=== PATIENT | female | born 1980 | race American Indian/Alaskan Native ===

== ENCOUNTER 2017-03-16 21:20 | Inpatient (IN) | payer MEDICAID ==
[2017-03-16] MEDS: LACTATED RINGERS 1,000 ML IV SCH (22:29)
[2017-03-16 22:51] LABS: Hematocrit 33.9 % (30.3-42.9); Hemoglobin 11.4 gm/dl (10.1-14.3); Mean Corpuscular HGB Conc 34 % (30-34); Mean Corpuscular Hemoglobin 29 pg (28-32); Mean Corpuscular Volume 87 fl (79-97); Platelet Count 182 K/mm3 (140-440); Red Blood Count 3.89 M/mm3 (3.65-5.03); Red Cell Distribution Width 16.5 % (13.2-15.2); White Blood Count 8.8 K/mm3 (4.5-11.0)
[2017-03-16] MEDS ORDERED: ePHEDrine SULFATE ONE (23:13)
[2017-03-16] MEDS ORDERED: LACTATED RINGERS 1,000 ML ONE (23:13)
--- NOTE | 2017-03-16 23:30 | History and Physical Report ---
History of Present Illness Date of examination: 03/16/17 Date of admission: 03/16/17 22:05 Chief complaint: Rupture of membranes History of present illness: Patient is 36 year old , LMP 06/13/16, EDC 03/20/17 at 39 weeks and 3 days gestation who presented to the labor floor complaining of rupture of membranes with clear fluid at about 8 PM. She also complains of contractions. She reports good movement. Past History Social history: no significant social history - Obstetrical History : 6 Para: 4 Hx # Term Pregnancies: 1 Number of Pregnancies: 3 Spontaneous Abortions: 1 Number of Living Children: 4 Medications and Allergies Allergies Allergy/AdvReac Type Severity Reaction Status Date / Time No Known Allergies Allergy Unverified 03/16/17 21:42 Active Meds: Active Medications Influenza Virus Vaccine Quadrival (Fluarix Quad 5324-6091(36 Mos+) 0.5 ml IM .ONCE ONE Stop: 03/16/17 23:15 - Vital Signs Vital signs: Vital Signs Temp Resp 98.0 F 18 03/16/17 21:44 03/16/17 21:44 Temp Pulse Resp BP Pulse Ox 98.0 F 94 H 18 125/66 03/16/17 21:44 03/16/17 23:27 03/16/17 21:44 03/16/17 23:27 - Physical Exam Cardiovascular: Normal S1, Normal S2 Lungs: Positive: Clear to auscultation Vulva: both: normal Adnexa: both: normal Deep Tendon Reflex Grade: Normal +2 - Obstetrical FHR: category 1 Uterine Contraction Monitor Mode: External Cervical Dilatation: 4 Cervical Effacement Percentage: 50 station: -2 Uterine Contraction Pattern: Irregular Results Result Diagrams: 03/16/17 22:15 Abnormal lab results 03/16/17 Range/Units 22:15 RDW 16.5 H (13.2-15.2) % All other labs normal. Assessment and Plan - Patient Problems (1) 39 weeks gestation of Current Visit: Yes Status: Acute (2) Active labor Current Visit: Yes Status: Acute Plan to address problem: Admit to Floor. Routine admitting labs. and toco monitoring. IV fluid Anticipate (3) Anemia Current Visit: Yes Status: Acute Qualifiers: Anemia type: iron deficiency
[2017-03-16] MEDS ORDERED: NARCAN 2 MG/2 ML IV PRN (23:39)
[2017-03-16] MEDS ORDERED: ePHEDrine SULFATE IV PRN (23:39)
--- NOTE | 2017-03-16 23:39 | Anesthesia Consultation ---
Anesthesia Consult and Med Hx Date of service: 03/16/17 - Airway Anesthetic Teeth Evaluation: Good ROM Head & Neck: Adequate Mental/Hyoid Distance: Adequate Mallampati Class: Class II Intubation Access Assessment: Probably Good - Pulmonary Exam CTA: Yes - Cardiac Exam Cardiac Exam: RRR - Pre-Operative Health Status ASA Pre-Surgery Classification: ASA2 Proposed Anesthetic Plan: Epidural, Spinal - Pulmonary Hx Asthma: Yes (childhood) COPD: No Hx Pneumonia: No - Cardiovascular System Hx Hypertension: No - Central Nervous System Hx Seizures: No Hx Psychiatric Problems: No - Endocrine Hx Renal Disease: No Hx End Stage Renal Disease: No Hx Hypothyroidism: No Hx Hyperthyroidism: No - Hematic Hx Anemia: Yes Hx Sickle Cell Disease: No - Other Systems Hx Alcohol Use: No Hx Obesity: Yes - Additional Comments Anesthesia Medical History Comments: IUP
[2017-03-16] MEDS ORDERED: fentaNYL-BUPIV 2 MCG/ML-0.125% 200 MCG/100 ML BAG EPIDURAL SCH (23:45)
[2017-03-17] MEDS: LACTATED RINGERS 1,000 ML IV SCH ×2 (00:25→03:35)
--- NOTE | 2017-03-17 06:34 | Progress Note ---
Assessment and Plan - Patient Problems (1) 39 weeks gestation of Current Visit: Yes Status: Acute (2) Active labor Current Visit: Yes Status: Acute Plan to address problem: Continue and toco monitoring. Anticipate . (3) Anemia Current Visit: Yes Status: Acute Qualifiers: Anemia type: iron deficiency (4) Fever Current Visit: Yes Status: Acute Plan to address problem: Tylenol given. Subjective - Subjective Date of service: 03/17/17 Principal diagnosis: Active labor Interval history: Patient is a 36 year old , LMP 06/13/16, EDC 03/20/17 at 39 weeks and 4 days gestation who presented to the labor floor complaining of rupture of membranes with clear fluid at about 8 PM. She was admitted for labor. She had an epidural. Her contractions have been every 3-4 minutes. tracing CAT1. Exam: cervix FD with anterior lip, head direct OP. Temp 99F. Tylenol given. Objective - Vital Signs Vital Signs: Vital Signs - 12hr 03/16/17 03/16/17 03/16/17 21:44 23:27 23:29 Temperature 98.0 F Pulse Rate 94 H 114 H Respiratory 18 Rate Blood Pressure 125/66 124/73 O2 Sat by Pulse 98 Oximetry 03/16/17 03/16/17 03/16/17 23:31 23:33 23:34 Temperature Pulse Rate 100 H 105 H 103 H Respiratory Rate Blood Pressure 123/72 127/71 O2 Sat by Pulse 99 Oximetry 03/16/17 03/16/17 03/16/17 23:35 23:38 23:39 Temperature Pulse Rate 104 H 93 H 108 H Respiratory Rate Blood Pressure 147/77 135/58 117/60 O2 Sat by Pulse 100 Oximetry 03/16/17 03/16/17 03/16/17 23:41 23:43 23:44 Temperature Pulse Rate 102 H 92 H 113 H Respiratory Rate Blood Pressure 119/56 113/59 O2 Sat by Pulse 100 Oximetry 03/16/17 03/16/17 03/16/17 23:45 23:47 23:49 Temperature Pulse Rate 107 H 114 H 107 H Respiratory Rate Blood Pressure 114/56 100/50 115/58 O2 Sat by Pulse 100 Oximetry 03/16/17 03/16/17 03/16/17 23:51 23:53 23:54 Temperature Pulse Rate 109 H 109 H 110 H Respiratory Rate Blood Pressure 111/57 121/60 O2 Sat by Pulse 100 Oximetry 03/16/17 03/16/17 03/16/17 23:55 23:57 23:59 Temperature Pulse Rate 97 H 117 H 112 H Respiratory Rate Blood Pressure 121/58 111/65 110/55 O2 Sat by Pulse 100 Oximetry 03/17/17 03/17/17 03/17/17 00:01 00:03 00:04 Temperature Pulse Rate 104 H 109 H 119 H Respiratory Rate Blood Pressure 115/58 115/58 O2 Sat by Pulse 100 Oximetry 03/17/17 03/17/17 03/17/17 00:05 00:07 00:09 Temperature Pulse Rate 108 H 114 H 118 H Respiratory Rate Blood Pressure 116/64 114/58 115/56 O2 Sat by Pulse 100 Oximetry 03/17/17 03/17/17 03/17/17 00:14 00:19 00:21 Temperature Pulse Rate 103 H 96 H 107 H Respiratory Rate Blood Pressure 101/56 O2 Sat by Pulse 100 100 Oximetry 03/17/17 03/17/17 03/17/17 00:24 00:29 00:32 Temperature Pulse Rate 103 H 99 H 107 H Respiratory Rate Blood Pressure 107/58 O2 Sat by Pulse 100 100 Oximetry 03/17/17 03/17/17 03/17/17 00:34 00:39 00:41 Temperature Pulse Rate 104 H 92 H 91 H Respiratory Rate Blood Pressure 117/57 O2 Sat by Pulse 100 100 Oximetry 03/17/17 03/17/17 03/17/17 00:44 00:49 00:51 Temperature Pulse Rate 94 H 89 90 Respiratory Rate Blood Pressure 112/59 O2 Sat by Pulse 100 100 Oximetry 03/17/17 03/17/17 03/17/17 00:54 00:59 01:00 Temperature Pulse Rate 95 H 93 H 96 H Respiratory Rate Blood Pressure 118/58 O2 Sat by Pulse 100 100 Oximetry 03/17/17 03/17/17 03/17/17 01:04 01:09 01:14 Temperature Pulse Rate 95 H 97 H 96 H Respiratory Rate Blood Pressure O2 Sat by Pulse 100 99 100 Oximetry 03/17/17 03/17/17 03/17/17 01:19 01:23 01:24 Temperature Pulse Rate 94 H 102 H 101 H Respiratory Rate Blood Pressure 119/58 O2 Sat by Pulse 100 100 Oximetry 03/17/17 03/17/17 03/17/17 01:29 01:34 01:39 Temperature Pulse Rate 101 H 100 H 107 H Respiratory Rate Blood Pressure O2 Sat by Pulse 100 100 99 Oximetry 03/17/17 03/17/17 03/17/17 01:44 01:45 01:49 Temperature Pulse Rate 114 H 114 H 105 H Respiratory Rate Blood Pressure 118/65 O2 Sat by Pulse 99 100 Oximetry 03/17/17 03/17/17 03/17/17 01:54 01:59 02:04 Temperature Pulse Rate 113 H 109 H 115 H Respiratory Rate Blood Pressure 117/61 O2 Sat by Pulse 100 99 99 Oximetry 03/17/17 03/17/17 03/17/17 02:09 02:14 02:19 Temperature Pulse Rate 102 H 125 H 117 H Respiratory Rate Blood Pressure O2 Sat by Pulse 99 99 100 Oximetry 03/17/17 03/17/17 03/17/17 02:24 02:29 02:34 Temperature Pulse Rate 107 H 117 H 112 H Respiratory Rate Blood Pressure 116/66 O2 Sat by Pulse 99 99 98 Oximetry 03/17/17 03/17/17 03/17/17 02:39 02:44 02:49 Temperature Pulse Rate 115 H 115 H 115 H Respiratory Rate Blood Pressure 126/73 O2 Sat by Pulse 99 100 99 Oximetry 03/17/17 03/17/17 03/17/17 02:54 02:59 03:04 Temperature Pulse Rate 108 H 107 H 113 H Respiratory Rate Blood Pressure 123/71 O2 Sat by Pulse 99 98 98 Oximetry 03/17/17 03/17/17 03/17/17 03:09 03:14 03:19 Temperature Pulse Rate 112 H 111 H 113 H Respiratory Rate Blood Pressure O2 Sat by Pulse 99 99 99 Oximetry 03/17/17 03/17/17 03/17/17 03:24 03:29 03:34 Temperature Pulse Rate 111 H 118 H 116 H Respiratory Rate Blood Pressure 115/68 O2 Sat by Pulse 99 99 98 Oximetry 03/17/17 03/17/17 03/17/17 03:39 03:44 03:45 Temperature Pulse Rate 107 H 116 H 116 H Respiratory Rate Blood Pressure 129/69 O2 Sat by Pulse 98 99 Oximetry 03/17/17 03/17/17 03/17/17 03:49 03:54 03:59 Temperature Pulse Rate 119 H 122 H 110 H Respiratory Rate Blood Pressure O2 Sat by Pulse 99 99 100 Oximetry 03/17/17 03/17/17 03/17/17 04:04 04:09 04:14 Temperature Pulse Rate 111 H 107 H 111 H Respiratory Rate Blood Pressure 130/65 O2 Sat by Pulse 100 100 98 Oximetry 03/17/17 03/17/17 03/17/17 04:19 04:24 04:27 Temperature 98.7 F Pulse Rate 111 H 111 H Respiratory 16 Rate Blood Pressure 113/63 O2 Sat by Pulse 98 98 98 Oximetry 03/17/17 03/17/17 03/17/17 04:29 04:34 04:39 Temperature Pulse Rate 123 H 115 H 124 H Respiratory Rate Blood Pressure O2 Sat by Pulse 99 99 97 Oximetry 03/17/17 03/17/17 03/17/17 04:44 04:49 04:54 Temperature Pulse Rate 122 H 119 H 116 H Respiratory Rate Blood Pressure 124/73 O2 Sat by Pulse 97 98 98 Oximetry 03/17/17 03/17/17 03/17/17 04:59 05:04 05:09 Temperature Pulse Rate 111 H 110 H 114 H Respiratory Rate Blood Pressure 114/66 O2 Sat by Pulse 98 97 98 Oximetry 03/17/17 03/17/17 03/17/17 05:14 05:19 05:24 Temperature Pulse Rate 119 H 119 H 112 H Respiratory Rate Blood Pressure O2 Sat by Pulse 98 98 98 Oximetry 03/17/17 03/17/17 03/17/17 05:25 05:29 05:34 Temperature Pulse Rate 114 H 121 H 110 H Respiratory Rate Blood Pressure 121/69 O2 Sat by Pulse 99 99 Oximetry 03/17/17 03/17/17 03/17/17 05:39 05:43 05:44 Temperature Pulse Rate 118 H 121 H 108 H Respiratory Rate Blood Pressure 109/62 O2 Sat by Pulse 100 100 Oximetry 03/17/17 03/17/17 03/17/17 05:49 05:54 05:59 Temperature Pulse Rate 107 H 114 H 123 H Respiratory Rate Blood Pressure O2 Sat by Pulse 100 100 100 Oximetry 03/17/17 03/17/17 03/17/17 06:04 06:09 06:14 Temperature Pulse Rate 120 H 129 H 127 H Respiratory Rate Blood Pressure O2 Sat by Pulse 100 99 100 Oximetry 03/17/17 03/17/17 03/17/17 06:19 06:24 06:29 Temperature Pulse Rate 114 H 116 H 115 H Respiratory Rate Blood Pressure O2 Sat by Pulse 100 100 100 Oximetry - Exam Cardiovascular: Normal S1, Normal S2 Lungs: Clear to auscultation Vulva: both: normal FHR: category 1 Uterine Contraction Monitor Mode: External Cervical Dilatation: 10 Cervical Effacement Percentage: 100 station: -1 to 0 Uterine Contraction Pattern: Regular Deep Tendon Reflex Grade: Normal +2 - Labs Labs: Abnormal Labs 03/16/17 22:15 RDW 16.5 H Laboratory Results - last 24 hr 03/16/17 03/16/17 22:15 22:15 WBC 8.8 RBC 3.89 Hgb 11.4 Hct 33.9 MCV 87 MCH 29 MCHC 34 RDW 16.5 H Plt Count 182 Blood Type B POSITIVE Antibody Screen Negative
[2017-03-17] MEDS ORDERED: METHERGINE IM ONE ×2 (07:17→07:30)
[2017-03-17] MEDS: PITOCin/NS 20 UNIT/1000ML DRIP 20 UNITS/1,000 ML BAG IV SCH ×2 (07:20→10:00)
--- NOTE | 2017-03-17 07:33 | Procedure Note ---
OB Delivery Note - Delivery Date of Delivery: 03/17/17 Surgeon: RAJNI ROMAN Estimated blood loss: 200cc - Vaginal Delivery position: OA Intrapartum events: uterine atony, other(please specify) (low grade fever, nuchal cord x 1 with compression) Delivery induction: none Delivery monitor: external FHT Route of delivery: Delivery placenta: spontaneous Delivery cord: nuchal cord Episiotomy: none Delivery laceration: none Anesthesia: epidural Delivery comments: Patient became fully dilated at 6 AM. She delivered a live male infant from an DEION position with Apgars of 8 at 1 min and 9 at 5 mins at 7:08 AM. Bulb suction of the mouth and nose, cord clamped and cut, cord blood collected. The placenta was delivered at 7:16 AM and it was complete with a 3-vessel cord. No episiotomy was given, no laceration was sustained. There was tight nuchal cord x 1 with compression. There was uterine atony responsive to IV pitocin and myometrial hemabate. The uterus became firm. EBL was 250 cc. Peds were notified. Patient remained stable.
[2017-03-17] MEDS ORDERED: LANSINOH TP PRN (08:00)
[2017-03-17] MEDS ORDERED: SODIUM CHLORIDE FLUSH SYRINGE 10 ML IV PRN (08:00)
[2017-03-17] MEDS ORDERED: ZOFRAN IV PRN (08:00)
[2017-03-17] MEDS ORDERED: PHENERGAN PO PRN (08:00)
[2017-03-17] MEDS ORDERED: TUCKS PAD TP PRN (08:00)
[2017-03-17] MEDS ORDERED: BENADRYL PO PRN (08:00)
[2017-03-17] MEDS ORDERED: TYLENOL PO PRN (08:00)
[2017-03-17] MEDS: PERCOCET 5/325 PO PRN ×2 (09:26→21:43)
[2017-03-17] MEDS ORDERED: DULCOLAX PR PRN (10:00)
[2017-03-17] MEDS ORDERED: COLACE PO SCH (10:00)
[2017-03-17] MEDS ORDERED: Fluarix Quad 2017-2018(36 MOS+ IM ONE (12:00)
[2017-03-17] MEDS: MOTRIN PO SCH ×2 (12:20→18:30)
[2017-03-17] MEDS: PRENATAL VITAMIN PO SCH (12:43)
[2017-03-17 19:03] LABS: Hematocrit 30.5 % (30.3-42.9); Hemoglobin 9.7 gm/dl (10.1-14.3)
[2017-03-18] MEDS: MOTRIN PO SCH ×4 (00:19→18:15)
[2017-03-18] MEDS ORDERED: BOOSTRIX IM ONE (06:00)
--- NOTE | 2017-03-18 10:32 | Progress Note ---
Assessment and Plan A: PPD #1 - stable P; Discharge home today. Subjective - Subjective Date of service: 03/18/17 Principal diagnosis: Active labor Patient reports: appetite normal [place]: doing well Objective - Vital Signs Latest vital signs: Vital Signs Temp Pulse Resp BP Pulse Ox 03/18/17 08:30 98 F 60 20 118/68 03/18/17 00:00 98.2 F 88 18 107/64 03/17/17 11:50 98.5 F 96 H 18 117/67 99 Intake and Output 03/17/17 03/18/17 03/18/17 22:59 06:59 14:59 Intake Total 240 480 240 Balance 240 480 240 Intake: Oral 240 Intake, Free Water 240 480 Other: Total, Intake Amount 240 Total, Output Amount 1 # Voids Void 1 1 1 - Exam Breasts: Present: deferred Cardiovascular: Present: Regular rate Lungs: Present: Clear to auscultation Abdomen: Present: soft Vulva: both: normal Uterus: Present: fundal height below umbilicus Extremities: Present: normal Deep Tendon Reflex Grade: Normal +2 - Labs Labs: Abnormal lab results 03/17/17 Range/Units 18:33 Hgb 9.7 L (10.1-14.3) gm/dl
--- NOTE | 2017-03-18 10:34 | Discharge Summary ---
Providers - Providers Date of Admission: 03/16/17 22:05 Date of discharge: 03/18/17 Attending physician: RAJNI ROMAN MD Primary care physician: RAJNI ROMAN MD Hospitalization Reason for admission: active labor Delivery: Episiotomy: none Laceration: none Incision: normal Other procedures: none complications: none Discharge diagnosis: IUP at term delivered [place] baby: female Condition at discharge: Good Disposition: DC-01 TO HOME OR SELFCARE Plan - Provider Discharge Summary Activity: routine, no sex for 6 weeks, no strenuous exercise Diet: routine Instructions: routine Additional instructions: [] Smoking cessation referral if applicable(refer to patient education folder for contact #) [] Refer to [facility] Booklet Call your doctor immediately for: * Fever > 100.5 * Heavy vaginal bleeding ( >1 pad per hour) * Severe persistent headache * Shortness of breath * Reddened, hot, painful area to leg or breast * Drainage or odor from incision. * Keep incision clean and dry at all times and follow doctor's instructions regarding bathing/showering - Follow up plan Follow up: RAJNI ROMAN MD [Primary Care Provider] - 6 Weeks
[2017-03-18] MEDS: PRENATAL VITAMIN PO SCH (13:23)
[2017-03-18 17:29] VITALS: BP 104/83
== END 2017-03-18 21:30 | disposition home or self-care (01) | DRG 774 ==
LOC: TRG 21:20 → LD 22:05 → TRG 22:05 → OB 03-17 08:51
PROVIDERS: ADMIT Obstetrics & Gynecology; ATTEND Obstetrics & Gynecology
PROC: 10E0XZZ Delivery of Products of Conception, External Approach (ICD-10-PCS; principal; 2017-03-17)
PROC: 3E0R3BZ Introduction of Anesthetic Agent into Spinal Canal, Percutaneous Approach (ICD-10-PCS; 2017-03-17)
PROC: 00HU33Z Insertion of Infusion Device into Spinal Canal, Percutaneous Approach (ICD-10-PCS; 2017-03-17)
PROC: 3E0234Z Introduction of Serum, Toxoid and Vaccine into Muscle, Percutaneous Approach (ICD-10-PCS; 2017-03-17)
DX: O69.1XX0 Labor and delivery complicated by cord around neck, with compression, not applicable or unspecified (principal); O75.2 Pyrexia during labor, not elsewhere classified; O99.02 Anemia complicating childbirth; D64.9 Anemia, unspecified; O62.2 Other uterine inertia; O99.52 Diseases of the respiratory system complicating childbirth; O99.214 Obesity complicating childbirth; J45.909 Unspecified asthma, uncomplicated; E66.9 Obesity, unspecified; Z3A.39 39 weeks gestation of pregnancy; Z37.0 Single live birth; Z23 Encounter for immunization; Z68.32 Body mass index [BMI] 32.0-32.9, adult
CPT/HCPCS: 36415; 59025; 85014; 85018; 85027; 86592; 86850; 86900; 86901; 90471; 90686; 90715; 96360; 99211; G0008; G0463; J2210; J2590; J7120